=== PATIENT | male | born 1970 | race Hispanic/Latino ===

== ENCOUNTER 2020-01-13 00:22 | Inpatient (IN) | payer OTHER ==
[~2020-01-13] VITALS: Ht 165.1 cm; Wt 84.1 kg
[2020-01-13] MEDS ORDERED: METOCLOPRAMIDE 10 MG/2 ML VIAL ONE (00:37)
[2020-01-13] MEDS ORDERED: ONDANSETRON HCL 4 MG/2 ML VIAL ONE (00:37)
[2020-01-13] MEDS ORDERED: PANTOPRAZOLE 40 MG/VIAL ONE ×3 (00:38→09:44)
[2020-01-13] MEDS ORDERED: FAMOTIDINE/PF 20 MG/2 ML VIAL IV ONE (00:38)
[2020-01-13 00:52] LABS: BASOPHILS % (AUTO) 0.9 % (0.0-5.0); EOSINOPHILS % (AUTO) 1.2 % (0.0-8.0); HEMATOCRIT 34.4 % (42-54); LYMPHOCYTES % (AUTO) 15.7 % (21.0-51.0); MEAN CORPUSCULAR HEMOGLOBIN 24.8 pg (27.0-33.0); MEAN CORPUSCULAR HGB CONC 31.4 g/dL (32.0-36.0); MEAN CORPUSCULAR VOLUME 79.1 fL (79-99); MONOCYTES % (AUTO) 12.5 % (3.0-13.0); NEUTROPHILS % (AUTO) 69.7 % (40.0-77.0); PLATELET COUNT (AUTO) 42 K/uL (130-400); RED BLOOD CELL COUNT(AUTO) 4.35 MIL/uL (4.50-6.20); RED CELL DISTRIBUTION WIDTH 17.4 % (11.0-15.5); WHITE BLOOD COUNT (AUTO) 3.4 K/uL (4.8-10.8)
[2020-01-13] MEDS ORDERED: SODIUM CHLORIDE 0.9% 100 ML IV ONE (00:52)
[2020-01-13 01:00] LABS: CREATININE 0.7 mg/dL (0.5-1.5); POTASSIUM 4.2 mmol/L (3.5-5.1)
[2020-01-13 01:04] LABS: ALBUMIN 2.5 g/dL (3.5-5.0); BILIRUBIN,TOTAL 1.1 mg/dL (0.2-1.0); TOTAL PROTEIN, SERUM 6.7 g/dL (6.0-8.3)
[2020-01-13 01:08] LABS: INR 1.34 (0.85-1.15); PARTIAL THROMBOPLASTIN TIME 28.4 SEC (26.3-35.5); PROTHROMBIN TIME 14.3 SEC (9.6-11.6)
[2020-01-13 01:27] LABS: APPEARANCE,URINE Clear (CLEAR); BILIRUBIN,URINE Negative (NEGATIVE); COLOR,URINE Dark Yellow (YELLOW); GLUCOSE, URINE (UA) Negative (NEGATIVE); KETONES,URINE 15 mg/dL (NEGATIVE); LEUKOCYTE ESTERASE ,URINE Negative (NEGATIVE); NITRATE,URINE Negative (NEGATIVE); OCCULT BLOOD,URINE Negative (NEGATIVE); PROTEIN,URINE Trace mg/dL (NEGATIVE)
[2020-01-13 01:35] LABS: AMPHET/METH SCREEN,URINE NEGATIVE (NEGATIVE); BARBITURATE SCREEN, URINE NEGATIVE (NEGATIVE); BENZODIAZEPINES SCREEN,URINE NEGATIVE (NEGATIVE); CANNABINOID SCREEN,URINE NEGATIVE (NEGATIVE); COCAINE SCREEN,URINE POSITIVE (NEGATIVE); OPIATE SCREEN,URINE NEGATIVE (NEGATIVE); PHENCYCLIDINE SCREEN,URINE NEGATIVE (NEGATIVE)
[2020-01-13 01:36] LABS: OCCULT BLOOD,GASTRIC FLUID POSITIVE (NEGATIVE)
[2020-01-13] MEDS ORDERED: OCTREOTIDE ACETATE 1,250 MCG in SODIUM CHLORIDE 0.9% 250 ML IV SCH (02:45)
[2020-01-13] MEDS ORDERED: ONDANSETRON HCL 4 MG/2 ML VIAL IV PRN (02:45)
[2020-01-13] MEDS ORDERED: NITROGLYCERIN 0.4 MG SL TAB SL PRN (02:45)
[2020-01-13] MEDS ORDERED: IOHEXOL-350 75 ML VIAL IV ONE (03:02)
[2020-01-13] MEDS ORDERED: OCTREOTIDE ACETATE 200 MCG/ML 5 ML VIAL ONE (04:14)
[2020-01-13] MEDS ORDERED: OCTREOTIDE ACETATE 100 MCG/ML AMP ONE (04:15)
[2020-01-13] MEDS ORDERED: SODIUM CHLORIDE 0.9% 250 ML IV ONE (04:17)
[2020-01-13] MEDS ORDERED: CHLORDIAZEPOXIDE HCL 25 MG CAP PO PRN ×2 (05:30)
[2020-01-13] MEDS ORDERED: LORAZEPAM 2 MG/ML 1 ML VIAL IVP PRN ×2 (05:30)
[2020-01-13] MEDS: THIAMINE HCL 100 MG, FOLIC ACID 1 MG, M.V.I. IV [ADULT] 10 ML in SODIUM CHLORIDE 0.9% 1... IV SCH (05:30)
[2020-01-13] MEDS ORDERED: PHARMACY COMMUNICATION MISC PRN (05:30)
[2020-01-13 06:40] LABS: HEMATOCRIT 28.7 % (42-54)
[2020-01-13 12:41] LABS: HEMATOCRIT 27.6 % (42-54)
[2020-01-13 16:20] VITALS: BP 118/75
--- NOTE | 2020-01-13 16:30 | NUR ---
ADMISSION . FROM ER. PER . SERVICES OF DR. MEREDITH . PT AAO X 3 REVIEW PLAN OF CARE. CAME IN WITH A PROTONIX DRIP, AT 10 CC HR/ AND OSTREOTIDE DRIP AT 25 MCG/HR FROM ER. REVIEW FALL RISK AND ADMISSION . ORDERS AND CALL LIGHT IN REACH.
[2020-01-13 17:26] LABS: HEMATOCRIT 27.8 % (42-54)
--- NOTE | 2020-01-13 18:00 | NUR ---
SCD ON . FOR VTE . EDUCATION GIVEN. Addendum: 01/13/20 at 1953 by ALISHA DUMONT RN RN Amended: Links added.
--- NOTE | 2020-01-13 18:50 | NUR ---
ONE SINGLE DONOR PLTS G IVEN PER ORDERS FOR A PLT COUNT LESS THAN 50. SEE TRANSFUSION FLOW SHEET FOR V/ S NOTED NO REACTIONS
[2020-01-13 19:55] VITALS: BP 134/83
[2020-01-13] MEDS: LACTULOSE 20 GM/30 ML UDCUP PR SCH (21:34)
[2020-01-13] MEDS: PANTOPRAZOLE SODIUM 80 MG in SODIUM CHLORIDE 0.9% 100 ML IVP SCH (21:35)
[2020-01-13] MEDS: SODIUM CHLORIDE 0.9% 1000ML 1,000 ML IV SCH (21:36)
[2020-01-13 23:47] VITALS: BP 130/79
[2020-01-14 00:44] LABS: HEMATOCRIT 25.3 % (42-54)
[2020-01-14 04:00] VITALS: BP 123/72
--- NOTE | 2020-01-14 04:01 | NUR ---
FEVER V leroy television reporter notified re temp 102.2,applied ice packs.
[2020-01-14] MEDS: ACETAMINOPHEN 650 MG SUPPOSITORY RC SCH ×2 (04:15→04:50)
[2020-01-14] MEDS: THIAMINE HCL 100 MG, FOLIC ACID 1 MG, M.V.I. IV [ADULT] 10 ML in SODIUM CHLORIDE 0.9% 1... IV SCH (04:44)
[2020-01-14 05:55] LABS: BASOPHILS % (AUTO) 0.6 % (0.0-5.0); EOSINOPHILS % (AUTO) 1.6 % (0.0-8.0); HEMATOCRIT 25.6 % (42-54); LYMPHOCYTES % (AUTO) 11.2 % (21.0-51.0); MEAN CORPUSCULAR HEMOGLOBIN 24.5 pg (27.0-33.0); MEAN CORPUSCULAR HGB CONC 31.6 g/dL (32.0-36.0); MEAN CORPUSCULAR VOLUME 77.3 fL (79-99); MONOCYTES % (AUTO) 11.8 % (3.0-13.0); NEUTROPHILS % (AUTO) 74.2 % (40.0-77.0); PLATELET COUNT (AUTO) 35 K/uL (130-400); RED BLOOD CELL COUNT(AUTO) 3.31 MIL/uL (4.50-6.20); RED CELL DISTRIBUTION WIDTH 17.8 % (11.0-15.5); WHITE BLOOD COUNT (AUTO) 3.1 K/uL (4.8-10.8)
[2020-01-14 06:05] LABS: INR 1.32 (0.85-1.15); PARTIAL THROMBOPLASTIN TIME 29.9 SEC (26.3-35.5); PROTHROMBIN TIME 14.1 SEC (9.6-11.6)
--- NOTE | 2020-01-14 06:09 | NUR ---
PAGED DR DOWNING Paged dr downing thru answering service,re platelet 35.
--- NOTE | 2020-01-14 06:26 | NUR ---
MD Dr GLOVER called back,informed him re pts, platelet results,pt had spiked a temp last night.He said to wait until covid PCR, is back,and do not give platelet until pt is almost having the procedure.Called lab they said Pcr result won't be back maybe until Tuesday.
[2020-01-14 06:31] LABS: ALBUMIN 2.3 g/dL (3.5-5.0); BILIRUBIN,TOTAL 1.4 mg/dL (0.2-1.0); CREATININE 0.9 mg/dL (0.5-1.5); MAGNESIUM 1.4 mg/dL (1.80-2.40); PHOSPHORUS 2.5 mg/dL (2.5-4.9); POTASSIUM 3.4 mmol/L (3.5-5.1); TOTAL PROTEIN, SERUM 5.7 g/dL (6.0-8.3)
[2020-01-14 07:30] VITALS: BP 114/53
[2020-01-14] MEDS: PANTOPRAZOLE SODIUM 80 MG in SODIUM CHLORIDE 0.9% 100 ML IVP SCH ×2 (10:11→22:20)
--- NOTE | 2020-01-14 10:51 | NUR ---
CHART CHECK COMPLETED. Pt IS A 49 Y.O. MALE ADMITTED SECONDARY TO HEMATEMESIS, LIVER CIRRHOSIS. Pt HAS A PAST MEDICAL HISTORY SIGNIFICANT FOR ESOPHAGEAL VARICES BANDING. Pt CURRENTLY ON CLEAR LIQUID DIET. PLEASE REQUEST FORMAL SKILLED SPEECH/SWALLOW EVALUATION IF Pt PRESENTS WITH +S/S OF ASPIRATION SUCH COUGH RESPONSE, THROAT CLEAR, OR WET VOCAL QUALITY DURING P.O. Addendum: 01/14/20 at [address] Amended: Links added.
[2020-01-14 11:00] VITALS: BP 97/53
[2020-01-14] MEDS: LACTULOSE 20 GM/30 ML UDCUP PR SCH ×2 (11:04→21:43)
[2020-01-14] MEDS: SODIUM CHLORIDE 0.9% 1000ML 1,000 ML IV SCH ×2 (11:04→21:43)
--- NOTE | 2020-01-14 11:33 | NUR ---
DCP CM met with pt and ravidenise in room discussed dc plans. Pt is independent prior to admission, lives at home with ronnie Larson [phone]. Denies any equipments/services. Feels safe to go back home, still drives, ravie able to assist with transportation and needs as necessary. DC plan to home once stable. CM to continue to follow up. Verfied #: [phone], registration updated. Addendum: 01/14/20 at 1135 by ANGIE KANG LVN CM Amended: Links added.
[2020-01-14 12:04] LABS: HEMATOCRIT 25.4 % (42-54)
[2020-01-14 16:00] VITALS: BP 111/71
[2020-01-14] MEDS ORDERED: COMPOUND IV REFRIGERATED 1 EACH IVSOLN MISC PRN (16:15)
[2020-01-14 18:31] LABS: HEMATOCRIT 25.7 % (42-54)
[2020-01-14 19:58] VITALS: BP 121/72
[2020-01-14 23:39] VITALS: BP 148/77
[2020-01-15] VITALS (15 sets, daily range): BP systolic 108–147; BP diastolic 54–89
[2020-01-15 00:06] LABS: HEMATOCRIT 27.5 % (42-54)
[2020-01-15] MEDS: SODIUM CHLORIDE 0.9% 1000ML 1,000 ML IV SCH (04:45)
[2020-01-15] MEDS: ACETAMINOPHEN 650 MG SUPPOSITORY RC SCH (05:13)
[2020-01-15] MEDS: THIAMINE HCL 100 MG, FOLIC ACID 1 MG, M.V.I. IV [ADULT] 10 ML in SODIUM CHLORIDE 0.9% 1... IV SCH (05:13)
[2020-01-15 07:13] LABS: BASOPHILS % (AUTO) 0.9 % (0.0-5.0); EOSINOPHILS % (AUTO) 2.7 % (0.0-8.0); HEMATOCRIT 26.4 % (42-54); LYMPHOCYTES % (AUTO) 21.7 % (21.0-51.0); MEAN CORPUSCULAR HEMOGLOBIN 24.4 pg (27.0-33.0); MEAN CORPUSCULAR HGB CONC 31.1 g/dL (32.0-36.0); MEAN CORPUSCULAR VOLUME 78.6 fL (79-99); MONOCYTES % (AUTO) 12.8 % (3.0-13.0); NEUTROPHILS % (AUTO) 61.9 % (40.0-77.0); PLATELET COUNT (AUTO) 39 K/uL (130-400); RED BLOOD CELL COUNT(AUTO) 3.36 MIL/uL (4.50-6.20); RED CELL DISTRIBUTION WIDTH 18.1 % (11.0-15.5); WHITE BLOOD COUNT (AUTO) 2.3 K/uL (4.8-10.8)
[2020-01-15 07:32] LABS: ALBUMIN 2.4 g/dL (3.5-5.0); BILIRUBIN,TOTAL 1.4 mg/dL (0.2-1.0); CREATININE 0.8 mg/dL (0.5-1.5); POTASSIUM 3.3 mmol/L (3.5-5.1)
--- NOTE | 2020-01-15 08:00 | NUR ---
PT . AAO X 3 ,REVIEW PLAN OF CARE, . DENIES ANY [PAIN , NPO STATUS ,WITH PENDING . EGD . WITH MAC
[2020-01-15 08:27] LABS: EOSINOPHILS % (MANUAL) 3 % (1-6); LYMPHOCYTES % (MANUAL) 25 % (22-44); MAN.DIFF COMMENT-IMPRESSION MANUAL DIFFERENTIAL; MONOCYTES % (MANUAL) 7 % (2-9); PLATELET MORPHOLOGY COMMENT MARKED DECREASE; REACTIVE LYMPHOCYTES 2 % (0-0); SEGMENTED NEUTROPHILS % 63 % (40-70)
[2020-01-15] MEDS: LACTULOSE 20 GM/30 ML UDCUP PR SCH ×2 (09:00→23:33)
[2020-01-15 10:04] LABS: HEMATOCRIT 26.3 % (42-54)
--- NOTE | 2020-01-15 13:30 | NUR ---
PT TO GI LAB, REVIEW ORDERS . PT PLTS STARTED PER DR YI ORDERS TO START N OW. FOR A PTS COUNT OF 39 ORDERS TO START INFUSION NOW PT GOING FOR A EGD WITH MAC PROCEDURE, SEE TRANSFUSION FOR V/S AND COMPLETION OF TRANSFUSION .
[2020-01-15] MEDS ORDERED: PROPOFOL 10 MG/ML 20ML VIAL IV ONE (13:43)
[2020-01-15] MEDS ORDERED: DiphenhydrAMINE HCL 50 MG/ML VIAL ONE (14:19)
[2020-01-15] MEDS ORDERED: MEPERIDINE-PF 25 MG/ML SYG ONE (14:26)
--- NOTE | 2020-01-15 15:10 | NUR ---
PT BACK FROM GI LAB, PT AAO X 3 DENIES ANY GASTRIC PAIN,, OR NAUSEA, ORDER HIS FULL LIQ, HOB UP AND CALL LIGHT IN REACH. BED LEVEL DOWN , FALL RISK , REVIEW . POSTOP V/S , MONITOR .
[2020-01-15] MEDS: ACETAMINOPHEN EXTRA STRENGTH 500 MG TABLET PO PRN (16:17)
[2020-01-15] MEDS: CEFTRIAXONE SODIUM 1 GM IVP SCH (16:30)
[2020-01-15] MEDS: LIDOCAINE HCL 2% VISCOUS 15 ML UDCUP PO SCH ×2 (18:23→23:29)
[2020-01-15 19:37] LABS: HEMATOCRIT 25.6 % (42-54)
[2020-01-15] MEDS ORDERED: COMPOUND IV REFRIGERATED 1 EACH IVSOLN MISC PRN (21:00)
[2020-01-16 00:01] LABS: HEMATOCRIT 27.9 % (42-54)
[2020-01-16 00:14] VITALS: BP 117/70
[2020-01-16] MEDS: ACETAMINOPHEN 650 MG SUPPOSITORY RC SCH (04:15)
[2020-01-16 04:55] VITALS: BP 129/81
[2020-01-16] MEDS: LIDOCAINE HCL 2% VISCOUS 15 ML UDCUP PO SCH ×3 (06:00→18:19)
[2020-01-16 06:34] LABS: EOSINOPHILS % (AUTO) 2.5 % (0.0-8.0); HEMATOCRIT 25.7 % (42-54); LYMPHOCYTES % (AUTO) 15.7 % (21.0-51.0); MEAN CORPUSCULAR HGB CONC 31.9 g/dL (32.0-36.0); MEAN CORPUSCULAR VOLUME 78.4 fL (79-99); MONOCYTES % (AUTO) 13.2 % (3.0-13.0); NEUTROPHILS % (AUTO) 66.6 % (40.0-77.0); PLATELET COUNT (AUTO) 50 K/uL (130-400); RED BLOOD CELL COUNT(AUTO) 3.28 MIL/uL (4.50-6.20); RED CELL DISTRIBUTION WIDTH 17.8 % (11.0-15.5)
[2020-01-16 06:47] LABS: ALBUMIN 2.4 g/dL (3.5-5.0); CREATININE 0.8 mg/dL (0.5-1.5); POTASSIUM 3.6 mmol/L (3.5-5.1); TOTAL PROTEIN, SERUM 6.1 g/dL (6.0-8.3)
[2020-01-16] MEDS ORDERED: POTASSIUM CHLORIDE 10% ELIXIR 20 MEQ/15 ML UDCUP PO SCH (07:30)
[2020-01-16 08:28] VITALS: BP 121/75
[2020-01-16] MEDS: PANTOPRAZOLE SODIUM 40 MG TABLET.DR PO SCH (09:23)
[2020-01-16] MEDS: LACTULOSE 20 GM/30 ML UDCUP PR SCH ×2 (09:23→20:34)
[2020-01-16] MEDS ORDERED: ZOLPIDEM TARTRATE 5 MG TAB PO SCH (10:00)
[2020-01-16 11:18] VITALS: BP 126/74
[2020-01-16] MEDS ORDERED: PHARMACY COMMUNICATION MISC SCH (14:45)
[2020-01-16 16:19] VITALS: BP 128/70
[2020-01-16] MEDS: CEFTRIAXONE SODIUM 1 GM IVP SCH (16:45)
[2020-01-16 19:59] VITALS: BP 135/74
[2020-01-17] VITALS: BP 146/93
[2020-01-17] MEDS: LIDOCAINE HCL 2% VISCOUS 15 ML UDCUP PO SCH ×3 (00:59→12:04)
[2020-01-17 03:47] VITALS: BP 133/87
[2020-01-17] MEDS: ACETAMINOPHEN 650 MG SUPPOSITORY RC SCH ×2 (04:15→07:59)
[2020-01-17 04:51] LABS: BASOPHILS % (AUTO) 0.8 % (0.0-5.0); EOSINOPHILS % (AUTO) 1.6 % (0.0-8.0); HEMATOCRIT 25.9 % (42-54); LYMPHOCYTES % (AUTO) 19.4 % (21.0-51.0); MEAN CORPUSCULAR HEMOGLOBIN 24.7 pg (27.0-33.0); MEAN CORPUSCULAR VOLUME 77.1 fL (79-99); NEUTROPHILS % (AUTO) 58.8 % (40.0-77.0); PLATELET COUNT (AUTO) 47 K/uL (130-400); RED BLOOD CELL COUNT(AUTO) 3.36 MIL/uL (4.50-6.20); RED CELL DISTRIBUTION WIDTH 17.8 % (11.0-15.5); WHITE BLOOD COUNT (AUTO) 2.5 K/uL (4.8-10.8)
[2020-01-17 05:06] LABS: ALBUMIN 2.4 g/dL (3.5-5.0); BILIRUBIN,TOTAL 0.8 mg/dL (0.2-1.0); CREATININE 0.8 mg/dL (0.5-1.5); POTASSIUM 3.5 mmol/L (3.5-5.1); TOTAL PROTEIN, SERUM 6.2 g/dL (6.0-8.3)
[2020-01-17 05:11] LABS: BASOPHILS % (MANUAL) 2 % (0-2); EOSINOPHILS % (MANUAL) 1 % (1-6); LYMPHOCYTES % (MANUAL) 21 % (22-44); MAN.DIFF COMMENT-IMPRESSION MANUAL DIFFERENTIAL; MONOCYTES % (MANUAL) 13 % (2-9); SEGMENTED NEUTROPHILS % 63 % (40-70)
[2020-01-17] MEDS: ACETAMINOPHEN EXTRA STRENGTH 500 MG TABLET PO PRN (06:20)
[2020-01-17 08:06] VITALS: BP 129/76
[2020-01-17] MEDS: PANTOPRAZOLE SODIUM 40 MG TABLET.DR PO SCH (08:52)
[2020-01-17] MEDS: LACTULOSE 20 GM/30 ML UDCUP PR SCH (08:52)
[2020-01-17 11:16] VITALS: BP 114/76
--- NOTE | 2020-01-17 14:32 | NUR ---
DR GLOVER CONTACTED DR GLOVER OK TO DISCHARGE PATIENT HAVE HIM FOLLOW-UP IN HIS OFFICE IN 2 WEEKS , APPOINTMENT MADE FOR Jan AT 1600/4:00 PM
--- NOTE | 2020-01-17 15:21 | NUR ---
PATIENT GIVEN DISCHARGE INSTRUCTIONS AND VERBALIZED UNDERSTANDINGS IN MEDICATIONS , FOLLOW-UP APPOINTMENTS AND EDUCATIONS ON ALCOHOL USE AND TO AVOID CONSUMING, TELEMETRY NOTIFIED AND MONITOR REMOVED , IV'S REMOVED WITH CATHETER INTACT AND SITE DRESSED, NO QUESTIONS OR CONCERNS AT THIS TIME. PATIENT TAKING BY WHEELCHAIR TO LOBBY TO MEET AND LEAVE FOR HOME.
== END 2020-01-17 15:20 | disposition home or self-care (01) | DRG 432 ==
LOC: EDH 00:22 → EDHIP 00:23 → 3CH 15:57
PROVIDERS: ADMIT Family Medicine; ATTEND Family Medicine
PROC: 30233R1 Transfusion of Nonautologous Platelets into Peripheral Vein, Percutaneous Approach (ICD-10-PCS; 2020-01-13)
PROC: 06L38CZ Occlusion of Esophageal Vein with Extraluminal Device, Via Natural or Artificial Opening Endoscopic (ICD-10-PCS; principal; 2020-01-15)
DX: K70.30 Alcoholic cirrhosis of liver without ascites (principal); I85.11 Secondary esophageal varices with bleeding; D68.9 Coagulation defect, unspecified; D61.818 Other pancytopenia; D62 Acute posthemorrhagic anemia; K76.6 Portal hypertension; F14.90 Cocaine use, unspecified, uncomplicated; J44.9 Chronic obstructive pulmonary disease, unspecified; K31.89 Other diseases of stomach and duodenum; Z20.828 Contact with and (suspected) exposure to other viral communicable diseases; D73.1 Hypersplenism; K29.00 Acute gastritis without bleeding; F10.10 Alcohol abuse, uncomplicated; K57.90 Diverticulosis of intestine, part unspecified, without perforation or abscess without bleeding; Z87.11 Personal history of peptic ulcer disease; Z83.3 Family history of diabetes mellitus; Z82.49 Family history of ischemic heart disease and other diseases of the circulatory system
CPT/HCPCS: 36415; 36430; 43244; 71045; 74177; 80053; 80305; 81003; 82140; 82150; 82270; 82271; 83690; 83735; 84100; 84484; 85014; 85018; 85025; 85610; 85730; 86677; 86850; 86900; 86901; 87040; 87426; 93005; C9113; G0378; J0696; J1200; J2175; J2354; J2405; J2704; J2765; J3411; J3490; J7030; J7050; P9034; Q9967; U0003

== ENCOUNTER 2020-06-04 23:16 | Inpatient (IN) | payer SELFPAY ==
[~2020-06-04] VITALS: Ht 165.1 cm; Wt 83.9 kg
[2020-06-04] MEDS ORDERED: ONDANSETRON 4MG INJ ONE (23:24)
[2020-06-04] MEDS ORDERED: PANTOPRAZOLE 40 MG/VIAL ONE (23:24)
[2020-06-04] MEDS ORDERED: 0.9%NACL 100ML 100 ML IV ONE (23:24)
[2020-06-04] MEDS ORDERED: CEFTRIAXONE 1G VIAL ONE (23:34)
[2020-06-04 23:36] LABS: BASOPHILS % (AUTO) 0.6 % (0.0-5.0); EOSINOPHILS % (AUTO) 1.1 % (0.0-8.0); MEAN CORPUSCULAR HEMOGLOBIN 16.4 pg (27.0-33.0); MEAN CORPUSCULAR HGB CONC 28.9 g/dL (32.0-36.0); MEAN CORPUSCULAR VOLUME 56.7 fL (79-99); MONOCYTES % (AUTO) 10.5 % (3.0-13.0); NEUTROPHILS % (AUTO) 79.2 % (40.0-77.0); PLATELET COUNT (AUTO) 47 K/uL (130-400); RED CELL DISTRIBUTION WIDTH 21.5 % (11.0-15.5); WHITE BLOOD COUNT (AUTO) 3.6 K/uL (4.8-10.8)
[2020-06-04] MEDS ORDERED: OCTREOTIDE ACETATE 200 MCG/ML 5 ML VIAL ONE ×2 (23:40→23:42)
[2020-06-04] MEDS ORDERED: 0.9% NACL 250ML 250 ML IV ONE (23:42)
[2020-06-04 23:44] LABS: HEMATOCRIT 20.4 % (42-54)
[2020-06-04 23:49] LABS: CARBON DIOXIDE 24 mmol/L (21-32); CHLORIDE 103 mmol/L (101-111); GLOMERULAR FILTR. RATE CALC 84 mL/min (>60); GLUCOSE,RANDOM 149 mg/dL (70-105); SODIUM SERUM 137 mmol/L (136-145); UREA NITROGEN, BLOOD 13 mg/dL (7-18)
[2020-06-04 23:53] LABS: ALANINE AMINOTRANSFERASE 53 U/L (12-78); ALBUMIN 2.2 g/dL (3.5-5.0); ALCOHOL, BLOOD < 3 mg/dL (0-10); ASPARTATE AMINOTRANSFERASE 72 U/L (10-37); BILIRUBIN,DIRECT 0.4 mg/dL (0.0-0.3); INR 1.48 (0.85-1.15); LIPASE 120 U/L (114-286); PROTHROMBIN TIME 15.6 SEC (9.6-11.6); TOTAL PROTEIN, SERUM 5.5 g/dL (6.0-8.3)
[2020-06-04 23:54] LABS: PARTIAL THROMBOPLASTIN TIME 28.7 SEC (26.3-35.5)
[2020-06-05] MEDS ORDERED: ACETAMINOPHEN 325 MG TAB PO PRN ×2 (02:00)
[2020-06-05] MEDS ORDERED: ONDANSETRON 4MG INJ IV PRN (02:00)
[2020-06-05] MEDS ORDERED: OCTREOTIDE ACETATE 1,250 MCG in 0.9% NACL 250ML 250 ML IV SCH (02:45)
[2020-06-05] MEDS ORDERED: MORPHINE 4 MG SYG ONE (04:39)
[2020-06-05] MEDS ORDERED: ONDANSETRON 4MG INJ ONE (04:39)
[2020-06-05 06:33] LABS: BASOPHILS % (AUTO) 0.3 % (0.0-5.0); EOSINOPHILS % (AUTO) 0.6 % (0.0-8.0); MEAN CORPUSCULAR HGB CONC 30.8 g/dL (32.0-36.0); MEAN CORPUSCULAR VOLUME 61.9 fL (79-99); MONOCYTES % (AUTO) 16.9 % (3.0-13.0); NEUTROPHILS % (AUTO) 70.9 % (40.0-77.0); PLATELET COUNT (AUTO) 35 K/uL (130-400); RED BLOOD CELL COUNT(AUTO) 3.36 MIL/uL (4.50-6.20); RED CELL DISTRIBUTION WIDTH 26.8 % (11.0-15.5); WHITE BLOOD COUNT (AUTO) 3.5 K/uL (4.8-10.8)
[2020-06-05 06:38] LABS: HEMATOCRIT 20.8 % (42-54)
[2020-06-05 06:48] LABS: BILIRUBIN,TOTAL 1.4 mg/dL (0.2-1.0); CREATININE 0.9 mg/dL (0.5-1.5); POTASSIUM 4.4 mmol/L (3.5-5.1); TOTAL PROTEIN, SERUM 4.8 g/dL (6.0-8.3)
[2020-06-05] MEDS ORDERED: 0.9% NACL 250ML 250 ML IV ONE (07:49)
[2020-06-05] MEDS ORDERED: 0.9%NACL 100ML 100 ML IV ONE (08:13)
[2020-06-05] MEDS: PANTOPRAZOLE 40MG INJ 80 MG in 0.9%NACL 100ML 100 ML IV SCH (09:00)
[2020-06-05] MEDS: CEFTRIAXONE 500MG VIAL IV SCH (11:55)
[2020-06-05] MEDS ORDERED: MORPHINE 2 MG SYG ONE ×2 (12:46→18:50)
[2020-06-05 13:57] LABS: HEMATOCRIT 25.4 % (42-54)
[2020-06-05] MEDS ORDERED: CEFTRIAXONE 1G VIAL ONE (17:06)
[2020-06-05] MEDS ORDERED: 0.9%NACL 50ML 50 ML IV ONE (17:07)
[2020-06-05 19:50] LABS: HEMATOCRIT 24.8 % (42-54)
[2020-06-05 20:22] LABS: APPEARANCE,URINE Clear (CLEAR); BILIRUBIN,URINE Negative (NEGATIVE); COLOR,URINE Dark Yellow (YELLOW); GLUCOSE, URINE (UA) Negative (NEGATIVE); KETONES,URINE Negative (NEGATIVE); LEUKOCYTE ESTERASE ,URINE Trace (NEGATIVE); NITRATE,URINE Negative (NEGATIVE); OCCULT BLOOD,URINE Negative (NEGATIVE); PROTEIN,URINE Negative (NEGATIVE)
[2020-06-05 20:33] LABS: BACTERIA,URINE Rare /HPF (None Seen); RBC,URINE 0-1 /HPF (0-1); SQUAMOUS EPITHELIAL CELL,UR Rare /HPF (0-2)
[2020-06-05] MEDS ORDERED: PANTOPRAZOLE 40 MG/VIAL ONE (21:20)
[2020-06-06] VITALS (22 sets, daily range): BP systolic 90–109; BP diastolic 47–61
[2020-06-06] MEDS ORDERED: MORPHINE 2 MG SYG IVP PRN (00:30)
[2020-06-06] MEDS: MORPHINE 2 MG SYG IV PRN ×4 (01:14→17:33)
[2020-06-06] MEDS ORDERED: PROPOFOL 10 MG/ML 20ML VIAL IV ONE (06:52)
[2020-06-06] MEDS ORDERED: LIDOCAINE HCL-MPF 2% 5ML VIAL ONE (07:17)
[2020-06-06] MEDS: PANTOPRAZOLE 40MG INJ 80 MG in 0.9%NACL 100ML 100 ML IV SCH (09:00)
[2020-06-06] MEDS: CEFTRIAXONE 500MG VIAL IV SCH (09:39)
[2020-06-06] MEDS ORDERED: COMPOUND IV REFRIGERATED 1 EACH IVSOLN MISC PRN (12:00)
[2020-06-07] MEDS ORDERED: PANTOPRAZOLE 40 MG/VIAL ONE (03:43)
[2020-06-07] MEDS ORDERED: 0.9%NACL 100ML 100 ML IV ONE (03:45)
[2020-06-07] MEDS: PANTOPRAZOLE 40MG INJ 80 MG in 0.9%NACL 100ML 100 ML IV SCH ×2 (03:51→08:23)
[2020-06-07] MEDS: MORPHINE 2 MG SYG IV PRN (03:59)
[2020-06-07 04:37] VITALS: BP 93/41
[2020-06-07] MEDS ORDERED: HYDROCODONE/ACETAMINOPHEN 5/325 MG TAB PO PRN (07:00)
[2020-06-07] MEDS: CEFTRIAXONE 500MG VIAL IV SCH (08:20)
[2020-06-07] MEDS: DULOXETINE HCL 30 MG CAP PO SCH (08:22)
[2020-06-07 08:42] VITALS: BP 89/46
[2020-06-07 09:55] LABS: HEMATOCRIT 17.8 % (42-54)
[2020-06-07] MEDS: PANTOPRAZOLE 40 MG TAB DR PO SCH ×2 (11:07→19:59)
[2020-06-07] MEDS ORDERED: 0.9% NACL 250ML 250 ML IV ONE (11:50)
[2020-06-07 12:26] VITALS: BP 96/47
[2020-06-07 16:53] VITALS: BP 90/54
[2020-06-07 18:05] LABS: HEMATOCRIT 20.7 % (42-54)
[2020-06-07 19:52] VITALS: BP 95/60
[2020-06-07] MEDS: TRAZODONE HCL 50 MG TAB PO SCH (19:59)
[2020-06-07 23:15] VITALS: BP 104/60
[2020-06-08 04:37] VITALS: BP 89/57
[2020-06-08] MEDS ORDERED: 0.9% NACL 250ML 250 ML IV ONE ×2 (06:05→21:41)
[2020-06-08] MEDS: PANTOPRAZOLE 40 MG TAB DR PO SCH ×2 (06:13→18:03)
[2020-06-08 08:24] VITALS: BP 100/59
[2020-06-08] MEDS: CEFTRIAXONE 500MG VIAL IV SCH (08:25)
[2020-06-08] MEDS: DULOXETINE HCL 30 MG CAP PO SCH (08:25)
[2020-06-08 12:00] VITALS: BP 97/59
[2020-06-08 16:28] LABS: MEAN CORPUSCULAR HEMOGLOBIN 23.1 pg (27.0-33.0); MEAN CORPUSCULAR HGB CONC 32.5 g/dL (32.0-36.0); PLATELET COUNT (AUTO) 43 K/uL (130-400); RED BLOOD CELL COUNT(AUTO) 3.38 MIL/uL (4.50-6.20); RED CELL DISTRIBUTION WIDTH 26.5 % (11.0-15.5); WHITE BLOOD COUNT (AUTO) 2.4 K/uL (4.8-10.8)
[2020-06-08 16:30] VITALS: BP 97/55
[2020-06-08 16:47] LABS: INR 1.41 (0.85-1.15); PROTHROMBIN TIME 14.4 SEC (9.6-11.6)
[2020-06-08 17:04] LABS: BAND NEUTROPHILS % (MANUAL) 6 % (0-2); EOSINOPHILS % (MANUAL) 2 % (1-6); LYMPHOCYTES % (MANUAL) 22 % (22-44); MAN.DIFF COMMENT-IMPRESSION MANUAL DIFFERENTIAL; MONOCYTES % (MANUAL) 6 % (2-9); REACTIVE LYMPHOCYTES 7 % (0-0); SEGMENTED NEUTROPHILS % 57 % (40-70)
[2020-06-08 19:35] VITALS: BP 111/62
[2020-06-08] MEDS: TRAZODONE HCL 50 MG TAB PO SCH (19:57)
[2020-06-09] VITALS (7 sets, daily range): BP systolic 97–116; BP diastolic 61–71
[2020-06-09 04:18] LABS: HEMATOCRIT 25.6 % (42-54)
[2020-06-09 04:28] LABS: BILIRUBIN,TOTAL 3.5 mg/dL (0.2-1.0); CREATININE 0.8 mg/dL (0.5-1.5); POTASSIUM 3.9 mmol/L (3.5-5.1); TOTAL PROTEIN, SERUM 4.7 g/dL (6.0-8.3)
[2020-06-09] MEDS: PANTOPRAZOLE 40 MG TAB DR PO SCH ×2 (06:14→18:28)
[2020-06-09] MEDS: DULOXETINE HCL 30 MG CAP PO SCH (08:48)
[2020-06-09] MEDS: CEFTRIAXONE 500MG VIAL IV SCH (08:48)
[2020-06-09 15:26] LABS: HEMATOCRIT 25.7 % (42-54)
[2020-06-09] MEDS: TRAZODONE HCL 50 MG TAB PO SCH (21:12)
[2020-06-10 03:17] VITALS: BP 110/67
[2020-06-10 05:08] LABS: HEMATOCRIT 25.7 % (42-54); MEAN CORPUSCULAR HGB CONC 31.9 g/dL (32.0-36.0); MEAN CORPUSCULAR VOLUME 72.2 fL (79-99); PLATELET COUNT (AUTO) 45 K/uL (130-400); RED BLOOD CELL COUNT(AUTO) 3.56 MIL/uL (4.50-6.20); RED CELL DISTRIBUTION WIDTH 25.4 % (11.0-15.5); WHITE BLOOD COUNT (AUTO) 2.1 K/uL (4.8-10.8)
[2020-06-10 05:19] LABS: CREATININE 0.9 mg/dL (0.5-1.5); POTASSIUM 3.8 mmol/L (3.5-5.1)
[2020-06-10] MEDS: PANTOPRAZOLE 40 MG TAB DR PO SCH ×2 (06:36→18:23)
[2020-06-10 07:22] VITALS: BP 94/67
[2020-06-10] MEDS: CEFTRIAXONE 500MG VIAL IV SCH (09:51)
[2020-06-10] MEDS: DULOXETINE HCL 30 MG CAP PO SCH (09:52)
[2020-06-10 10:44] VITALS: BP 115/73
[2020-06-10 15:25] LABS: HEMATOCRIT 26.2 % (42-54)
[2020-06-10 16:08] VITALS: BP 123/74
[2020-06-10 19:57] VITALS: BP 120/79
[2020-06-10] MEDS: TRAZODONE HCL 50 MG TAB PO SCH (20:22)
[2020-06-11] VITALS: BP 104/70
[2020-06-11 03:54] VITALS: BP 119/73
[2020-06-11 05:13] LABS: BILIRUBIN,TOTAL 1.4 mg/dL (0.2-1.0); CREATININE 0.8 mg/dL (0.5-1.5); POTASSIUM 3.9 mmol/L (3.5-5.1)
[2020-06-11] MEDS: PANTOPRAZOLE 40 MG TAB DR PO SCH ×2 (05:25→15:35)
[2020-06-11 08:46] VITALS: BP 139/89
[2020-06-11] MEDS: CEFTRIAXONE 500MG VIAL IV SCH (09:00)
[2020-06-11] MEDS: DULOXETINE HCL 30 MG CAP PO SCH (09:00)
[2020-06-11 09:01] LABS: EOSINOPHILS % (AUTO) 3.1 % (0.0-8.0); LYMPHOCYTES % (AUTO) 19.9 % (21.0-51.0); MEAN CORPUSCULAR HEMOGLOBIN 23.1 pg (27.0-33.0); MEAN CORPUSCULAR HGB CONC 31.4 g/dL (32.0-36.0); MEAN CORPUSCULAR VOLUME 73.3 fL (79-99); MONOCYTES % (AUTO) 17.3 % (3.0-13.0); NEUTROPHILS % (AUTO) 58.2 % (40.0-77.0); PLATELET COUNT (AUTO) 51 K/uL (130-400); RED CELL DISTRIBUTION WIDTH 25.7 % (11.0-15.5); WHITE BLOOD COUNT (AUTO) 1.9 K/uL (4.8-10.8)
[2020-06-11] MEDS ORDERED: FERROUS SULFATE 325 MG TABLET.DR PO SCH (10:00)
[2020-06-11] MEDS ORDERED: CYANOCOBALAMIN (VITAMIN B-12) 1,000 MCG TABLET PO SCH (10:00)
[2020-06-11] MEDS ORDERED: FOLIC ACID 5 MG/ML VIAL SQ SCH ×2 (10:00→10:15)
[2020-06-11 12:08] VITALS: BP 113/65
[2020-06-11 16:49] VITALS: BP 96/61
[2020-06-11] MEDS ORDERED: DULO30CA2 PO (18:01)
[2020-06-11] MEDS ORDERED: CEFD300C3 PO (18:01)
[2020-06-11] MEDS ORDERED: CYAN-52 PO (18:01)
[2020-06-11] MEDS ORDERED: FERR324T4 PO (18:01)
[2020-06-11] MEDS ORDERED: PANT40TA PO (18:01)
[2020-06-11] MEDS ORDERED: TRAZ-253 PO (18:01)
[2020-06-11] MEDS ORDERED: FOLI0.4T6 PO (18:01)
[2020-06-12] MEDS ORDERED: FERROUS SULFATE 325 MG TABLET.DR PO SCH (09:00)
[2020-06-12] MEDS ORDERED: CYANOCOBALAMIN (VITAMIN B-12) 1,000 MCG TABLET PO SCH (09:00)
== END 2020-06-11 20:00 | disposition home or self-care (01) | DRG 432 ==
LOC: EDH 23:16 → EDHIP 23:17 → 4BH 06-05 23:33
PROVIDERS: ADMIT Internal Medicine; ATTEND Internal Medicine
PROC: 30233N1 Transfusion of Nonautologous Red Blood Cells into Peripheral Vein, Percutaneous Approach (ICD-10-PCS; 2020-06-05)
PROC: 06L38CZ Occlusion of Esophageal Vein with Extraluminal Device, Via Natural or Artificial Opening Endoscopic (ICD-10-PCS; principal; 2020-06-06)
PROC: 30233R1 Transfusion of Nonautologous Platelets into Peripheral Vein, Percutaneous Approach (ICD-10-PCS; 2020-06-08)
DX: K70.30 Alcoholic cirrhosis of liver without ascites (principal); I85.11 Secondary esophageal varices with bleeding; D62 Acute posthemorrhagic anemia; D68.9 Coagulation defect, unspecified; K76.6 Portal hypertension; D69.6 Thrombocytopenia, unspecified; F10.20 Alcohol dependence, uncomplicated; K80.20 Calculus of gallbladder without cholecystitis without obstruction; D70.9 Neutropenia, unspecified; R16.1 Splenomegaly, not elsewhere classified; R16.0 Hepatomegaly, not elsewhere classified; F32.9 Major depressive disorder, single episode, unspecified; G47.00 Insomnia, unspecified; K31.89 Other diseases of stomach and duodenum; Z83.3 Family history of diabetes mellitus; Z82.49 Family history of ischemic heart disease and other diseases of the circulatory system
CPT/HCPCS: 36415; 36430; 43244; 71045; 74176; 80048; 80053; 80076; 81001; 82270; 83605; 83690; 84145; 84484; 85014; 85018; 85025; 85027; 85610; 85730; 86850; 86900; 86901; 86923; A4606; C9113; G0378; J0696; J2270; J2354; J2405; J2704; J3490; J7030; J7050; P9016; P9034

== ENCOUNTER 2020-09-29 23:30 | Emergency (ER) | payer OTHER ==
[~2020-09-29] VITALS: Ht 165.1 cm; Wt 78.5 kg
[~2020-09-29 23:30] MED LIST: CEFD300C3 PO; CYAN-52 PO; DULO30CA2 PO; FERR324T4 PO; FOLI0.4T6 PO; PANT40TA PO; TRAZ-253 PO
[2020-09-29 23:31] VITALS: BP 160/93
[2020-09-30 05:22] VITALS: BP 138/83
[2020-09-30 06:55] VITALS: BP 131/78
[2020-09-30] MEDS ORDERED: AZIT500T4 PO (07:26)
== END 2020-09-30 08:30 | disposition home or self-care (01) ==
LOC: EDH 23:30
DX: U07.1 COVID-19 (principal); Z79.899 Other long term (current) drug therapy
CPT/HCPCS: 87635; 87804 ×2; 99283; C9803

== ENCOUNTER 2021-07-08 17:16 | Emergency (ER) | payer OTHER ==
[~2021-07-08 17:16] MED LIST changes: -CEFD300C3 PO; -CYAN-52 PO; -DULO30CA2 PO; -FERR324T4 PO; -FOLI0.4T6 PO; -PANT40TA PO; +PANT40TA54 PO; -TRAZ-253 PO
[2021-07-08 17:56] LABS: BASOPHILS % (AUTO) 0.4 % (0.0-5.0); EOSINOPHILS % (AUTO) 0.1 % (0.0-8.0); HEMATOCRIT 28.9 % (42-54); LYMPHOCYTES % (AUTO) 3.7 % (21.0-51.0); MEAN CORPUSCULAR HEMOGLOBIN 20.9 pg (27.0-33.0); MEAN CORPUSCULAR HGB CONC 30.4 g/dL (32.0-36.0); MEAN CORPUSCULAR VOLUME 68.6 fL (79-99); MONOCYTES % (AUTO) 8.9 % (3.0-13.0); NEUTROPHILS % (AUTO) 86.3 % (40.0-77.0); PLATELET COUNT (AUTO) 41 K/uL (130-400); RED BLOOD CELL COUNT(AUTO) 4.21 MIL/uL (4.50-6.20); WHITE BLOOD COUNT (AUTO) 7.2 K/uL (4.8-10.8)
[2021-07-08 18:08] LABS: CREATININE 0.8 mg/dL (0.5-1.5); INR 1.27 (0.85-1.15); POTASSIUM 3.8 mmol/L (3.5-5.1); PROTHROMBIN TIME 13.7 SEC (9.6-11.6)
[2021-07-08 18:09] LABS: PARTIAL THROMBOPLASTIN TIME 29.3 SEC (26.3-35.5)
[2021-07-08 18:21] LABS: ALBUMIN 2.7 g/dL (3.5-5.0); BILIRUBIN,TOTAL 1.5 mg/dL (0.2-1.0); TOTAL PROTEIN, SERUM 6.8 g/dL (6.0-8.3)
[2021-07-08 18:32] LABS: APPEARANCE,URINE Clear (CLEAR); BILIRUBIN,URINE Negative (NEGATIVE); COLOR,URINE Dark Yellow (YELLOW); GLUCOSE, URINE (UA) Negative (NEGATIVE); KETONES,URINE Negative (NEGATIVE); LEUKOCYTE ESTERASE ,URINE Small (NEGATIVE); NITRATE,URINE Negative (NEGATIVE); OCCULT BLOOD,URINE Negative (NEGATIVE); PH,URINE >=9.0 (5.0-8.0); PROTEIN,URINE Negative (NEGATIVE)
[2021-07-08 18:38] LABS: BACTERIA,URINE Rare /HPF (None Seen); RBC,URINE 0-1 /HPF (0-1); SQUAMOUS EPITHELIAL CELL,UR Rare /HPF (0-2)
[2021-07-08] MEDS ORDERED: ACETAMINOPHEN 500 MG TABLET ONE (18:43)
[2021-07-08] MEDS ORDERED: ACETAMINOPHEN 500 MG TABLET PO ONE (18:45)
[2021-07-08] MEDS ORDERED: IOHEXOL-350 75 ML VIAL IV ONE (19:27)
[2021-07-08] MEDS ORDERED: 0.9%NACL 1000ML 1,000 ML IV ONE (19:30)
[2021-07-08] MEDS ORDERED: CEFTRIAXONE 1G VIAL IVP ONE (19:30)
[2021-07-08 22:36] VITALS: BP 126/77
== END 2021-07-08 22:36 | disposition left against medical advice (07) ==
LOC: EDH 17:16
DX: A41.9 Sepsis, unspecified organism (principal); R77.8 Other specified abnormalities of plasma proteins; N39.0 Urinary tract infection, site not specified; Z20.822 Contact with and (suspected) exposure to COVID-19; K74.60 Unspecified cirrhosis of liver; Z79.899 Other long term (current) drug therapy; Z98.890 Other specified postprocedural states
CPT/HCPCS: 36415; 74177; 80053; 81001; 82550; 83605; 84484 ×2; 85025; 85610; 85730; 87040 ×2; 87077; 87088; 87186; 87635; 87804 ×2; 87880; 93005; 96361; 96374; 99285; C9803; J0696; J7030; Q9967